=== PATIENT | female | born 2000 | race Hispanic/Latino ===

== ENCOUNTER 2021-04-29 07:31 | Emergency (ER) | payer OTHER ==
[~2021-04-29] VITALS: Ht 157.5 cm; Wt 72.6 kg
[2021-04-29 07:33] VITALS: BP 112/65
== END 2021-04-29 10:38 | disposition home or self-care (01) ==
LOC: EDH 07:31
DX: U07.1 COVID-19 (principal); J06.9 Acute upper respiratory infection, unspecified
CPT/HCPCS: 87635; 87804 ×2; 99283; C9803